=== PATIENT | male | born 1965 | race Caucasian/White ===

== ENCOUNTER 2016-08-28 10:33 | Emergency (ER) | payer OTHER ==
--- NOTE | ~2016-08-28 | EKG ---
PATIENT: JOSEFINA LARA UNIT #: [id number] Ventricular Rate: 64 BPM Atrial Rate: 64 BPM P-R Interval: 182 ms QRS Duration: 80 ms Q-T Interval: 384 ms QTC Calculation(Bezet): 396 ms P Allen: 31 degrees Calculated R Allen: 8 degrees Calculated T Allen: 6 degrees Diagnosis Line: Normal sinus rhythm Diagnosis Line: Inferior infarct (cited on or before 28-AUG-2016) Diagnosis Line: Abnormal ECG Diagnosis Line: When compared with ECG of 26-JUL-2015 12:08, Diagnosis Line: Vent. rate has decreased BY 41 BPM Diagnosis Line: Confirmed by LILIANA DOVE MD ([id number]) on Diagnosis Line: 08/31/2016 11:03:05 AM INTERPRETING MD: DERRELL CARRILLO
[~2016-08-28 10:33] MED LIST: ALBUTEROL INHALER; ASPIRIN81 M1 PO; LISINOPRIL20 MG PO; LOPID600 MG PO; METFORMIN HCL500 M3 PO; ZANTAC PO; ZOCOR PO
[2016-08-28] MEDS ORDERED: NO MEDICATIONS (10:35)
[2016-08-28 11:34] LABS: URINE SOURCE CLEAN CATCH
[2016-08-28 11:37] LABS: BASOPHIL# 0.1 X10e3 (0-0.3); BASOPHIL% 0.8 % (0-2.5); EOSINOPHIL# 0.3 X10e3 (0-0.7); EOSINOPHIL% 3.4 % (0.0-7.0); HEMOGLOBIN 15.5 gm/dL (13.0-16.0); LYMPHOCYTE# 2.7 X10e3 (1.0-3.5); LYMPHOCYTE% 35.7 % (17.0-45.0); MEAN CELL VOLUME 87.5 FL (83-96); MEAN CORPUSCULAR HEMOGLOBIN 30.1 PG (28-34); MEAN CORPUSCULAR HGB CONC 34.4 g/dL (30-36); MEAN PLATELET VOLUME 8.3 FL (6.5-11.5); MONOCYTE# 0.7 X10e3 (0-1.0); MONOCYTE% 9.3 % (3.0-12.0); NEUTROPHIL# 3.8 X10e3 (1.5-7.1); NEUTROPHIL% 50.8 % (40-75); PLATELET COUNT 204 X10e3 (140-420); RED BLOOD COUNT 5.15 X10e (3.90-5.60); RED CELL DISTRIBUTION WIDTH 12.8 % (11.0-15.5); WHITE BLOOD COUNT 7.5 X10e3 (4.0-10.5)
[2016-08-28 11:39] LABS: URINE APPEARANCE CLEAR; URINE BILIRUBIN NEG (NEG); URINE BLOOD NEG (NEG); URINE COLOR YELLOW; URINE GLUCOSE NEG (NORM); URINE KETONE NEG (NEG); URINE LEUKOCYTE ESTERASE NEG (NEG); URINE NITRATE NEG (NEG); URINE PH 5.5 (5-8); URINE PROTEIN NEG (NEG); URINE UROBILINOGEN 0.2 MG/DL (NORM)
[2016-08-28 11:40] LABS: DIFF IND NO
[2016-08-28 11:40] LABS: MICRO INDICATED? NO
[2016-08-28 11:57] LABS: ALBUMIN SERUM 4.2 g/dL (3.5-5.0); BILIRUBIN, DIRECT 0.1 mg/dL (0.0-0.2); BILIRUBIN,INDIRECT 0.6 mg/dL (0.0-0.9); BILIRUBIN,TOTAL 0.7 mg/dL (0.2-2.0); CALCIUM SERUM 9.6 mg/dL (8.4-10.2); CREATININE SERUM 0.9 mg/dL (0.6-1.4); GLOM FILT RATE Estimated 99.2 mL/min (>60); POTASSIUM 4.1 mmol/L (3.5-5.1); PROTEIN TOTAL SERUM 7.7 g/dL (6.0-8.3)
== END 2016-08-28 12:23 | disposition home or self-care (01) ==
LOC: SED 10:33
PROVIDERS: Emergency Medicine
DX: R10.84 Generalized abdominal pain (principal); R10.13 Epigastric pain; I10 Essential (primary) hypertension
CPT/HCPCS: 36415; 80048; 80076; 81003; 82150; 83690; 85025; 93005; 99284

== ENCOUNTER 2016-10-30 10:23 | Emergency (ER) | payer SELFPAY ==
[~2016-10-30] VITALS: Ht 172.7 cm; Wt 86.2 kg
[~2016-10-30 10:23] MED LIST changes: +NO MEDICATIONS
[2016-10-30] MEDS ORDERED: RANITIDINE HCL25 GM (10:38)
[2016-10-30] MEDS ORDERED: BENAZEPRIL HCL10 M1 PO (10:38)
== END 2016-10-30 11:54 | disposition home or self-care (01) ==
LOC: SED 10:23
DX: S40.012A Contusion of left shoulder, initial encounter (principal); V43.52XA Car driver injured in collision with other type car in traffic accident, initial encounter; Y92.410 Unspecified street and highway as the place of occurrence of the external cause
CPT/HCPCS: 99284